=== PATIENT | female | born 1970 | race Hispanic/Latino ===

== ENCOUNTER 2020-08-03 23:05 | Inpatient (IN) | payer OTHER ==
[~2020-08-03] VITALS: Ht 157.5 cm; Wt 74.8 kg
[2020-08-03 23:50] LABS: BASOPHILS % (AUTO) 0.3 % (0.0-5.0); EOSINOPHILS % (AUTO) 1.2 % (0.0-8.0); HEMATOCRIT 34.7 % (36-48); MEAN CORPUSCULAR HEMOGLOBIN 28.7 pg (27.0-33.0); MEAN CORPUSCULAR HGB CONC 33.4 g/dL (32.0-36.0); MEAN CORPUSCULAR VOLUME 85.9 fL (79-99); MONOCYTES % (AUTO) 7.7 % (3.0-13.0); NEUTROPHILS % (AUTO) 69.3 % (40.0-77.0); PLATELET COUNT (AUTO) 244 K/uL (130-400); RED BLOOD CELL COUNT(AUTO) 4.04 MIL/uL (4.00-5.50); RED CELL DISTRIBUTION WIDTH 14.8 % (11.0-15.5); WHITE BLOOD COUNT (AUTO) 14.1 K/uL (4.8-10.8)
[2020-08-04] MEDS ORDERED: ONDANSETRON 4MG INJ ONE (00:09)
[2020-08-04] MEDS ORDERED: MORPHINE 4 MG SYG ONE (00:09)
[2020-08-04 00:12] LABS: INR 1.09 (0.85-1.15); PROTHROMBIN TIME 11.8 SEC (9.6-11.6)
[2020-08-04 00:13] LABS: PARTIAL THROMBOPLASTIN TIME 29.1 SEC (26.3-35.5)
[2020-08-04 00:14] LABS: ALANINE AMINOTRANSFERASE 16 U/L (12-78); ALBUMIN 3.2 g/dL (3.5-5.0); AMYLASE 27 U/L (25-115); ASPARTATE AMINOTRANSFERASE 8 U/L (10-37); BILIRUBIN,TOTAL 0.6 mg/dL (0.2-1.0); CARBON DIOXIDE 29 mmol/L (21-32); CHLORIDE 96 mmol/L (101-111); CREATINE KINASE, TOTAL 45 U/L (21-232); CREATININE 0.6 mg/dL (0.5-1.5); GLOMERULAR FILTR. RATE CALC 112 mL/min (>60); GLUCOSE,RANDOM 153 mg/dL (70-105); LIPASE 71 U/L (114-286); MYOGLOBIN 23 ng/mL (10-92); SODIUM SERUM 135 mmol/L (136-145); TOTAL PROTEIN, SERUM 7.6 g/dL (6.0-8.3); TROPONIN I < 0.04 ng/mL (0.00-0.06); UREA NITROGEN, BLOOD 6 mg/dL (7-18)
[2020-08-04] MEDS ORDERED: IOHEXOL 350 MG/ML 100ML INFUS..BTL IV ONE (00:36)
[2020-08-04] MEDS ORDERED: ZOSYN 3.375GM+NS 50ML 50 ML IV ONE (02:57)
[2020-08-04] MEDS: CEFAZOLIN SODIUM 1 GM VIAL IVP SCH ×2 (08:30→16:30)
[2020-08-04] MEDS ORDERED: VANCOMYCIN PROTOCOL PER PHARMACY IV SCH (08:30)
[2020-08-04] MEDS ORDERED: GUAIFENESIN-DM 200/20 MG 10 ML PO PRN (08:45)
[2020-08-04] MEDS: 0.9%NACL 1000ML 1,000 ML IV SCH ×2 (08:45→18:45)
[2020-08-04] MEDS ORDERED: ONDANSETRON 4MG INJ IV PRN (08:45)
[2020-08-04] MEDS: ENOXAPARIN SODIUM 30 MG/0.3 ML SQ SCH (09:00)
[2020-08-04] MEDS: FAMOTIDINE 20MG VIAL IV SCH ×2 (09:00→20:34)
[2020-08-04] MEDS ORDERED: CEFAZOLIN SODIUM 1 GM VIAL ONE (12:40)
[2020-08-04] MEDS ORDERED: 0.9%NACL 100ML 100 ML IV ONE (12:41)
[2020-08-04] MEDS ORDERED: MORPHINE 2 MG SYG ONE (12:58)
[2020-08-04] MEDS ORDERED: VANCOMYCIN 1G 1.5 GM in 0.9% NACL 250ML 250 ML IV ONE (13:30)
[2020-08-04] MEDS ORDERED: COMPOUND IV REFRIGERATED 1 EACH IVSOLN MISC PRN (13:30)
[2020-08-04 17:10] VITALS: BP 101/46
[2020-08-04] MEDS ORDERED: METF-910 PO (17:55)
[2020-08-04 19:44] VITALS: BP 93/48
[2020-08-04] MEDS: VANCOMYCIN 750MG + NS 250 ML IV SCH ×2 (20:34)
[2020-08-04] MEDS: POTASSIUM CHLORIDE 20MEQ/100ML 100 ML IV PRN (20:35)
[2020-08-04] MEDS: KETOROLAC 15MG/ML VIAL (15MG/ML) IV PRN (21:01)
[2020-08-04 23:34] VITALS: BP 102/56
[2020-08-05] MEDS: CEFAZOLIN SODIUM 1 GM VIAL IVP SCH ×3 (00:17→16:31)
[2020-08-05] MEDS: POTASSIUM CHLORIDE 20MEQ/100ML 100 ML IV PRN ×2 (00:18→16:31)
[2020-08-05 03:26] VITALS: BP 103/63
[2020-08-05] MEDS: 0.9%NACL 1000ML 1,000 ML IV SCH ×2 (04:45→16:30)
[2020-08-05] MEDS: KETOROLAC 15MG/ML VIAL (15MG/ML) IV PRN ×3 (05:34→16:31)
[2020-08-05] MEDS: VANCOMYCIN 750MG + NS 250 ML IV SCH ×2 (05:38)
[2020-08-05 07:10] LABS: BASOPHILS % (AUTO) 0.3 % (0.0-5.0); LYMPHOCYTES % (AUTO) 13.9 % (21.0-51.0); MEAN CORPUSCULAR HEMOGLOBIN 28.4 pg (27.0-33.0); MEAN CORPUSCULAR HGB CONC 32.5 g/dL (32.0-36.0); MEAN CORPUSCULAR VOLUME 87.4 fL (79-99); MONOCYTES % (AUTO) 7.3 % (3.0-13.0); NEUTROPHILS % (AUTO) 76.9 % (40.0-77.0); PLATELET COUNT (AUTO) 209 K/uL (130-400); RED BLOOD CELL COUNT(AUTO) 3.66 MIL/uL (4.00-5.50); RED CELL DISTRIBUTION WIDTH 14.7 % (11.0-15.5); WHITE BLOOD COUNT (AUTO) 11.7 K/uL (4.8-10.8)
[2020-08-05 07:31] LABS: ALBUMIN 2.5 g/dL (3.5-5.0); BILIRUBIN,TOTAL 0.8 mg/dL (0.2-1.0); CREATININE 0.7 mg/dL (0.5-1.5); MAGNESIUM 1.7 mg/dL (1.80-2.40); POTASSIUM 3.4 mmol/L (3.5-5.1); TOTAL PROTEIN, SERUM 6.4 g/dL (6.0-8.3)
[2020-08-05 08:00] VITALS: BP 97/61
[2020-08-05] MEDS: ENOXAPARIN SODIUM 30 MG/0.3 ML SQ SCH (09:00)
[2020-08-05] MEDS: FAMOTIDINE 20MG VIAL IV SCH ×2 (09:05→20:37)
[2020-08-05 12:00] VITALS: BP 111/54
[2020-08-05 16:00] VITALS: BP 145/70
[2020-08-05] MEDS ORDERED: LIDOCAINE HCL-MPF 1% 2ML VIAL ONE (16:27)
[2020-08-05] MEDS ORDERED: VANCOMYCIN 1G 2 GM in 0.9% NACL 500ML IV.SOLN 500 ML IV SCH (17:00)
[2020-08-05] MEDS ORDERED: VANCOMYCIN IV SCH ×2 (17:00)
[2020-08-05] MEDS ORDERED: NACL 0.9% IV SCH ×2 (17:00)
[2020-08-05 19:26] VITALS: BP 117/65
[2020-08-05] MEDS: INSULIN HUMULIN R 100 UNIT/ML 3ML SQ SCH (20:42)
[2020-08-05 23:22] VITALS: BP 108/57
[2020-08-06] VITALS: BP 124/69
[2020-08-06] MEDS: CEFAZOLIN SODIUM 1 GM VIAL IVP SCH ×4 (01:05→23:16)
[2020-08-06] MEDS: KETOROLAC 15MG/ML VIAL (15MG/ML) IV PRN ×3 (01:21→14:55)
[2020-08-06 04:00] VITALS: BP 112/65
[2020-08-06] MEDS: ACETAMINOPHEN 325 MG TAB PO PRN ×2 (05:09→16:44)
[2020-08-06] MEDS: VANCOMYCIN 1G/250ML KIT 250 ML IV SCH ×3 (05:11→23:12)
[2020-08-06 05:50] LABS: BASOPHILS % (AUTO) 0.3 % (0.0-5.0); EOSINOPHILS % (AUTO) 1.3 % (0.0-8.0); HEMATOCRIT 31.8 % (36-48); MEAN CORPUSCULAR HEMOGLOBIN 27.5 pg (27.0-33.0); MEAN CORPUSCULAR HGB CONC 32.1 g/dL (32.0-36.0); MEAN CORPUSCULAR VOLUME 85.7 fL (79-99); MONOCYTES % (AUTO) 8.2 % (3.0-13.0); NEUTROPHILS % (AUTO) 73.6 % (40.0-77.0); PLATELET COUNT (AUTO) 216 K/uL (130-400); RED BLOOD CELL COUNT(AUTO) 3.71 MIL/uL (4.00-5.50); RED CELL DISTRIBUTION WIDTH 14.4 % (11.0-15.5); WHITE BLOOD COUNT (AUTO) 11.1 K/uL (4.8-10.8)
[2020-08-06 06:21] LABS: ALBUMIN 2.5 g/dL (3.5-5.0); BILIRUBIN,TOTAL 0.6 mg/dL (0.2-1.0); CREATININE 0.6 mg/dL (0.5-1.5); POTASSIUM 3.5 mmol/L (3.5-5.1); TOTAL PROTEIN, SERUM 6.4 g/dL (6.0-8.3)
[2020-08-06] MEDS: INSULIN HUMULIN R 100 UNIT/ML 3ML SQ SCH ×4 (06:54→20:56)
[2020-08-06 08:00] VITALS: BP 90/51
[2020-08-06] MEDS: ENOXAPARIN SODIUM 30 MG/0.3 ML SQ SCH (09:03)
[2020-08-06] MEDS: FAMOTIDINE 20MG VIAL IV SCH ×2 (09:03→20:56)
[2020-08-06 12:00] VITALS: BP 108/58
[2020-08-06] MEDS: HYDROMORPHONE 0.5 MG SYG (0.5MG/0.5ML) IVP PRN (12:32)
[2020-08-06] MEDS: LACTULOSE 20 GM/30 ML UDCUP PO PRN ×2 (13:36→19:26)
[2020-08-06 16:00] VITALS: BP 111/62
[2020-08-06] MEDS: POTASSIUM CHLORIDE 20MEQ/100ML 100 ML IV PRN (18:10)
[2020-08-06] MEDS: 0.9%NACL 1000ML 1,000 ML IV SCH (19:22)
[2020-08-06 20:00] VITALS: BP 102/55
[2020-08-07] VITALS (12 sets, daily range): BP systolic 111–140; BP diastolic 59–68
[2020-08-07] MEDS: KETOROLAC 15MG/ML VIAL (15MG/ML) IV PRN ×2 (00:04→05:28)
[2020-08-07] MEDS: VANCOMYCIN 1G/250ML KIT 250 ML IV SCH ×3 (05:25→21:57)
[2020-08-07] MEDS: 0.9%NACL 1000ML 1,000 ML IV SCH ×2 (05:26→15:00)
[2020-08-07 05:52] LABS: BASOPHILS % (AUTO) 0.2 % (0.0-5.0); EOSINOPHILS % (AUTO) 1.5 % (0.0-8.0); HEMATOCRIT 30.7 % (36-48); LYMPHOCYTES % (AUTO) 16.4 % (21.0-51.0); MEAN CORPUSCULAR HGB CONC 32.9 g/dL (32.0-36.0); MONOCYTES % (AUTO) 7.5 % (3.0-13.0); NEUTROPHILS % (AUTO) 73.8 % (40.0-77.0); PLATELET COUNT (AUTO) 212 K/uL (130-400); RED BLOOD CELL COUNT(AUTO) 3.61 MIL/uL (4.00-5.50); RED CELL DISTRIBUTION WIDTH 14.5 % (11.0-15.5)
[2020-08-07 06:01] LABS: ALBUMIN 2.5 g/dL (3.5-5.0); BILIRUBIN,TOTAL 0.6 mg/dL (0.2-1.0); CREATININE 0.7 mg/dL (0.5-1.5); TOTAL PROTEIN, SERUM 6.9 g/dL (6.0-8.3)
[2020-08-07] MEDS: POTASSIUM CHLORIDE 20MEQ/100ML 100 ML IV PRN ×2 (06:15→08:53)
[2020-08-07] MEDS: INSULIN HUMULIN R 100 UNIT/ML 3ML SQ SCH ×4 (06:18→22:05)
[2020-08-07] MEDS: FAMOTIDINE 20MG VIAL IV SCH ×2 (08:10→21:56)
[2020-08-07] MEDS: CEFAZOLIN SODIUM 1 GM VIAL IVP SCH ×2 (08:10→17:24)
[2020-08-07] MEDS: HYDROMORPHONE 0.5 MG SYG (0.5MG/0.5ML) IVP PRN (08:53)
[2020-08-07] MEDS: ENOXAPARIN SODIUM 30 MG/0.3 ML SQ SCH (15:48)
[2020-08-08] MEDS: 0.9%NACL 1000ML 1,000 ML IV SCH ×3 (01:00→21:00)
[2020-08-08] MEDS: CEFAZOLIN SODIUM 1 GM VIAL IVP SCH ×2 (01:39→09:09)
[2020-08-08 04:00] VITALS: BP 118/59
[2020-08-08 05:17] LABS: BASOPHILS % (AUTO) 0.4 % (0.0-5.0); EOSINOPHILS % (AUTO) 1.2 % (0.0-8.0); HEMATOCRIT 28.2 % (36-48); LYMPHOCYTES % (AUTO) 20.3 % (21.0-51.0); MEAN CORPUSCULAR HEMOGLOBIN 28.7 pg (27.0-33.0); MEAN CORPUSCULAR VOLUME 84.4 fL (79-99); MONOCYTES % (AUTO) 7.5 % (3.0-13.0); NEUTROPHILS % (AUTO) 70.1 % (40.0-77.0); PLATELET COUNT (AUTO) 188 K/uL (130-400); RED BLOOD CELL COUNT(AUTO) 3.34 MIL/uL (4.00-5.50); RED CELL DISTRIBUTION WIDTH 14.6 % (11.0-15.5); WHITE BLOOD COUNT (AUTO) 10.5 K/uL (4.8-10.8)
[2020-08-08 05:32] LABS: CREATININE 0.7 mg/dL (0.5-1.5); POTASSIUM 3.2 mmol/L (3.5-5.1)
[2020-08-08] MEDS: VANCOMYCIN 1G/250ML KIT 250 ML IV SCH ×3 (06:00→22:41)
[2020-08-08] MEDS: INSULIN HUMULIN R 100 UNIT/ML 3ML SQ SCH ×4 (06:30→22:40)
[2020-08-08 08:11] VITALS: BP 107/57
[2020-08-08] MEDS: ENOXAPARIN SODIUM 30 MG/0.3 ML SQ SCH (09:09)
[2020-08-08] MEDS: FAMOTIDINE 20MG VIAL IV SCH ×2 (09:10→22:39)
[2020-08-08] MEDS: ACETAMINOPHEN 325 MG TAB PO PRN (10:46)
[2020-08-08] MEDS: POTASSIUM CHLORIDE 20MEQ/100ML 100 ML IV PRN (10:48)
[2020-08-08] MEDS ORDERED: LIDOCAINE HCL-MPF 1% 2ML VIAL ONE (11:00)
[2020-08-08 11:41] VITALS: BP 112/66
[2020-08-08] MEDS: HYDROMORPHONE 0.5 MG SYG (0.5MG/0.5ML) IVP PRN ×2 (11:43→22:42)
[2020-08-08] MEDS: ZOSYN 3.375GM+NS 50ML 50 ML IV SCH ×2 (13:00→22:39)
[2020-08-08 16:00] VITALS: BP 103/63
[2020-08-08 20:05] VITALS: BP 114/58
[2020-08-08 23:31] VITALS: BP 118/56
[2020-08-09 03:58] VITALS: BP 108/60
[2020-08-09] MEDS: ZOSYN 3.375GM+NS 50ML 50 ML IV SCH ×3 (04:19→20:36)
[2020-08-09] MEDS: VANCOMYCIN 1G/250ML KIT 250 ML IV SCH ×3 (05:27→21:47)
[2020-08-09 05:44] LABS: BASOPHILS % (AUTO) 0.3 % (0.0-5.0); EOSINOPHILS % (AUTO) 1.8 % (0.0-8.0); HEMATOCRIT 30.4 % (36-48); LYMPHOCYTES % (AUTO) 18.1 % (21.0-51.0); MEAN CORPUSCULAR HGB CONC 32.2 g/dL (32.0-36.0); MEAN CORPUSCULAR VOLUME 86.9 fL (79-99); MONOCYTES % (AUTO) 7.6 % (3.0-13.0); NEUTROPHILS % (AUTO) 71.7 % (40.0-77.0); PLATELET COUNT (AUTO) 200 K/uL (130-400); RED CELL DISTRIBUTION WIDTH 14.7 % (11.0-15.5); WHITE BLOOD COUNT (AUTO) 10.1 K/uL (4.8-10.8)
[2020-08-09 06:07] LABS: CREATININE 0.7 mg/dL (0.5-1.5); POTASSIUM 3.7 mmol/L (3.5-5.1)
[2020-08-09] MEDS: 0.9%NACL 1000ML 1,000 ML IV SCH ×2 (07:00→16:39)
[2020-08-09] MEDS: INSULIN HUMULIN R 100 UNIT/ML 3ML SQ SCH ×4 (07:21→21:48)
[2020-08-09 08:00] VITALS: BP 122/57
[2020-08-09] MEDS: FAMOTIDINE 20MG VIAL IV SCH ×2 (08:31→20:36)
[2020-08-09] MEDS: ENOXAPARIN SODIUM 30 MG/0.3 ML SQ SCH (08:32)
[2020-08-09] MEDS: HYDROMORPHONE 0.5 MG SYG (0.5MG/0.5ML) IVP PRN ×2 (08:32→18:25)
[2020-08-09 12:04] VITALS: BP 96/54
[2020-08-09 16:00] VITALS: BP 123/67
[2020-08-09 20:00] VITALS: BP 105/53
[2020-08-10] VITALS: BP 115/53
[2020-08-10] MEDS: HYDROMORPHONE 0.5 MG SYG (0.5MG/0.5ML) IVP PRN ×3 (00:06→14:18)
[2020-08-10 04:00] VITALS: BP 115/59
[2020-08-10] MEDS: ZOSYN 3.375GM+NS 50ML 50 ML IV SCH ×3 (04:49→19:44)
[2020-08-10 05:12] LABS: BASOPHILS % (AUTO) 0.3 % (0.0-5.0); EOSINOPHILS % (AUTO) 1.6 % (0.0-8.0); HEMATOCRIT 30.3 % (36-48); LYMPHOCYTES % (AUTO) 22.2 % (21.0-51.0); MEAN CORPUSCULAR HEMOGLOBIN 28.3 pg (27.0-33.0); MEAN CORPUSCULAR HGB CONC 33.3 g/dL (32.0-36.0); MEAN CORPUSCULAR VOLUME 84.9 fL (79-99); MONOCYTES % (AUTO) 7.7 % (3.0-13.0); NEUTROPHILS % (AUTO) 67.8 % (40.0-77.0); PLATELET COUNT (AUTO) 232 K/uL (130-400); RED BLOOD CELL COUNT(AUTO) 3.57 MIL/uL (4.00-5.50); RED CELL DISTRIBUTION WIDTH 14.6 % (11.0-15.5); WHITE BLOOD COUNT (AUTO) 10.7 K/uL (4.8-10.8)
[2020-08-10 05:19] LABS: CREATININE 0.8 mg/dL (0.5-1.5); POTASSIUM 3.4 mmol/L (3.5-5.1)
[2020-08-10] MEDS: VANCOMYCIN 1G/250ML KIT 250 ML IV SCH ×3 (05:32→21:18)
[2020-08-10] MEDS: INSULIN HUMULIN R 100 UNIT/ML 3ML SQ SCH ×4 (06:09→20:59)
[2020-08-10] MEDS ORDERED: KCL 20 MEQ ERTAB PO SCH (07:45)
[2020-08-10] MEDS ORDERED: LACTULOSE 20 GM/30 ML UDCUP PO SCH (08:00)
[2020-08-10] MEDS ORDERED: GLIPIZIDE XL 2.5MG TAB PO SCH (08:00)
[2020-08-10 08:07] VITALS: BP 130/62
[2020-08-10] MEDS: METFORMIN HCL 500 MG TABLET PO SCH ×2 (08:38→16:59)
[2020-08-10] MEDS: FAMOTIDINE 20MG VIAL IV SCH ×2 (08:39→19:44)
[2020-08-10] MEDS: ENOXAPARIN SODIUM 30 MG/0.3 ML SQ SCH (08:39)
[2020-08-10 12:00] VITALS: BP 114/60
[2020-08-10 16:00] VITALS: BP 108/53
[2020-08-10] MEDS ORDERED: HYDROMORPHONE 1 MG INJ IVP PRN (18:45)
[2020-08-10 20:00] VITALS: BP 113/61
[2020-08-10] MEDS: INSULIN GLARGINE 100 UNITS/ML 10 ML VIAL SQ SCH (21:02)
[2020-08-11] VITALS (26 sets, daily range): BP systolic 96–156; BP diastolic 46–85
[2020-08-11] MEDS: ACETAMINOPHEN 325 MG TAB PO PRN (03:57)
[2020-08-11] MEDS: HYDROMORPHONE 0.5 MG SYG (0.5MG/0.5ML) IVP PRN (03:57)
[2020-08-11 04:42] LABS: APPEARANCE,URINE Cloudy (CLEAR); BILIRUBIN,URINE Negative (NEGATIVE); COLOR,URINE Yellow (YELLOW); GLUCOSE, URINE (UA) Negative (NEGATIVE); KETONES,URINE Negative (NEGATIVE); LEUKOCYTE ESTERASE ,URINE Trace (NEGATIVE); NITRATE,URINE Negative (NEGATIVE); OCCULT BLOOD,URINE Negative (NEGATIVE); PROTEIN,URINE Negative (NEGATIVE)
[2020-08-11] MEDS: ZOSYN 3.375GM+NS 50ML 50 ML IV SCH ×4 (04:52→21:10)
[2020-08-11 04:53] LABS: BACTERIA,URINE Few /HPF (None Seen); RBC,URINE 0-1 /HPF (0-1); WBC,URINE 0-1 /HPF (0-1)
[2020-08-11 04:54] LABS: YEAST,URINE BUDDING Moderate /HPF (None Seen)
[2020-08-11 05:14] LABS: BASOPHILS % (AUTO) 0.3 % (0.0-5.0); EOSINOPHILS % (AUTO) 1.7 % (0.0-8.0); HEMATOCRIT 30.4 % (36-48); LYMPHOCYTES % (AUTO) 13.4 % (21.0-51.0); MEAN CORPUSCULAR HEMOGLOBIN 27.9 pg (27.0-33.0); MEAN CORPUSCULAR HGB CONC 32.9 g/dL (32.0-36.0); MEAN CORPUSCULAR VOLUME 84.7 fL (79-99); MONOCYTES % (AUTO) 7.9 % (3.0-13.0); NEUTROPHILS % (AUTO) 76.4 % (40.0-77.0); PLATELET COUNT (AUTO) 266 K/uL (130-400); RED BLOOD CELL COUNT(AUTO) 3.59 MIL/uL (4.00-5.50); RED CELL DISTRIBUTION WIDTH 14.7 % (11.0-15.5); WHITE BLOOD COUNT (AUTO) 10.4 K/uL (4.8-10.8)
[2020-08-11 05:16] LABS: INR 1.06 (0.85-1.15); PROTHROMBIN TIME 11.5 SEC (9.6-11.6)
[2020-08-11 05:17] LABS: PARTIAL THROMBOPLASTIN TIME 27.9 SEC (26.3-35.5)
[2020-08-11 05:34] LABS: CREATININE 0.9 mg/dL (0.5-1.5); CRP QUANTITATIVE 169.2 mg/L (0.00-9.0); POTASSIUM 3.7 mmol/L (3.5-5.1)
[2020-08-11] MEDS: VANCOMYCIN 1G/250ML KIT 250 ML IV SCH ×3 (05:45→21:13)
[2020-08-11] MEDS: INSULIN HUMULIN R 100 UNIT/ML 3ML SQ SCH ×6 (06:05→21:08)
[2020-08-11 06:12] LABS: ERYTHROCYTE SEDIMENTATION RATE 118 MM/HR (0-30)
[2020-08-11] MEDS ORDERED: INSULIN HUMULIN R 100 UNIT/ML 3ML SQ SCH (07:30)
[2020-08-11] MEDS ORDERED: LIDOCAINE 1%-EPI 1:100,000 20 ML VIAL IJ ONE (07:52)
[2020-08-11] MEDS: ENOXAPARIN SODIUM 30 MG/0.3 ML SQ SCH (08:12)
[2020-08-11] MEDS: FAMOTIDINE 20MG VIAL IV SCH ×2 (08:12→21:10)
[2020-08-11] MEDS ORDERED: 0.9%NACL 1000ML 1,000 ML IV ONE (12:12)
[2020-08-11] MEDS ORDERED: SUCCINYLCHOLINE CHLORIDE 20 MG/ML 10 ML VIAL ONE (12:26)
[2020-08-11] MEDS ORDERED: LIDOCAINE PF 100MG/5ML (2%) SYRINGE 5ML ONE (12:26)
[2020-08-11] MEDS ORDERED: PROPOFOL 10 MG/ML 20ML VIAL IV ONE (12:27)
[2020-08-11] MEDS ORDERED: MIDAZOLAM HCL 1 MG/ML 2ML VIAL ONE (12:27)
[2020-08-11] MEDS ORDERED: METRONIDAZOLE 500 MG TABLET PO SCH (12:30)
[2020-08-11] MEDS ORDERED: ROCURONIUM 10MG/1ML SYR 10 MG/ML ML ONE (12:36)
[2020-08-11] MEDS ORDERED: FENTANYL CITRATE PF 50 MCG/1 ML 2ML VIAL ONE (12:37)
[2020-08-11] MEDS ORDERED: ONDANSETRON 4MG INJ ONE (12:43)
[2020-08-11] MEDS ORDERED: GLYCOPYRROLATE 1 MG/5 ML SYRINGE ONE (12:43)
[2020-08-11] MEDS ORDERED: NEOSTIGMINE 5MG/5ML SYR IV ONE (12:43)
[2020-08-11] MEDS ORDERED: ONDANSETRON 4MG INJ IVP PRN (13:30)
[2020-08-11] MEDS ORDERED: MEPERIDINE-PF 25 MG/ML SYG ONE (13:40)
[2020-08-11] MEDS: METRONIDAZOLE 500MG/100ML BAG 100 ML IVPB SCH ×2 (15:19→21:11)
[2020-08-11] MEDS: INSULIN GLARGINE 100 UNITS/ML 10 ML VIAL SQ SCH (21:06)
[2020-08-12] MEDS: MORPHINE 4 MG SYG IV PRN (02:07)
[2020-08-12] MEDS: ACETAMINOPHEN 325 MG TAB PO PRN (02:47)
[2020-08-12 04:00] VITALS: BP 92/48
[2020-08-12 05:10] LABS: BASOPHILS % (AUTO) 0.3 % (0.0-5.0); EOSINOPHILS % (AUTO) 1.7 % (0.0-8.0); HEMATOCRIT 27.2 % (36-48); LYMPHOCYTES % (AUTO) 23.9 % (21.0-51.0); MEAN CORPUSCULAR HEMOGLOBIN 28.4 pg (27.0-33.0); MEAN CORPUSCULAR HGB CONC 32.7 g/dL (32.0-36.0); MEAN CORPUSCULAR VOLUME 86.9 fL (79-99); MONOCYTES % (AUTO) 6.2 % (3.0-13.0); NEUTROPHILS % (AUTO) 67.3 % (40.0-77.0); PLATELET COUNT (AUTO) 273 K/uL (130-400); RED BLOOD CELL COUNT(AUTO) 3.13 MIL/uL (4.00-5.50); RED CELL DISTRIBUTION WIDTH 15.3 % (11.0-15.5); WHITE BLOOD COUNT (AUTO) 8.7 K/uL (4.8-10.8)
[2020-08-12 05:16] LABS: CREATININE 1.1 mg/dL (0.5-1.5); POTASSIUM 3.6 mmol/L (3.5-5.1)
[2020-08-12] MEDS: VANCOMYCIN 1G/250ML KIT 250 ML IV SCH ×2 (05:20→20:04)
[2020-08-12] MEDS: METRONIDAZOLE 500MG/100ML BAG 100 ML IVPB SCH ×3 (05:21→21:03)
[2020-08-12] MEDS: ZOSYN 3.375GM+NS 50ML 50 ML IV SCH ×3 (05:21→20:04)
[2020-08-12] MEDS ORDERED: KCL 20 MEQ ERTAB PO PRN (06:15)
[2020-08-12] MEDS ORDERED: POTASSIUM CHLORIDE 10% ELIXIR 20 MEQ/15 ML UDCUP PO PRN (06:15)
[2020-08-12] MEDS: INSULIN HUMULIN R 100 UNIT/ML 3ML SQ SCH ×7 (06:23→21:04)
[2020-08-12 08:01] VITALS: BP 96/69
[2020-08-12] MEDS ORDERED: COMPOUND IV MISC 1 EACH IVSOLN MISC PRN (08:15)
[2020-08-12] MEDS: IRON SUCROSE COMPLEX 300 MG in 0.9%NACL 50ML 50 ML IV SCH (09:04)
[2020-08-12] MEDS: FLUCONAZOLE 400 MG/NS 200 ML 200 ML IV SCH (09:05)
[2020-08-12] MEDS: ENOXAPARIN SODIUM 30 MG/0.3 ML SQ SCH (09:05)
[2020-08-12] MEDS: FAMOTIDINE 20MG VIAL IV SCH ×2 (09:05→20:04)
[2020-08-12 11:08] VITALS: BP 97/42
[2020-08-12 16:24] VITALS: BP 138/73
[2020-08-12 19:49] VITALS: BP 119/64
[2020-08-12] MEDS: INSULIN GLARGINE 100 UNITS/ML 10 ML VIAL SQ SCH (21:03)
[2020-08-13] VITALS: BP 141/67
[2020-08-13] MEDS: MORPHINE 4 MG SYG IV PRN ×2 (00:10→20:13)
[2020-08-13 04:00] VITALS: BP 127/64
[2020-08-13] MEDS: ZOSYN 3.375GM+NS 50ML 50 ML IV SCH ×3 (05:11→20:03)
[2020-08-13] MEDS: METRONIDAZOLE 500MG/100ML BAG 100 ML IVPB SCH ×3 (05:11→22:13)
[2020-08-13] MEDS: INSULIN HUMULIN R 100 UNIT/ML 3ML SQ SCH ×7 (06:30→21:00)
[2020-08-13 07:54] VITALS: BP 133/62
[2020-08-13] MEDS: IRON SUCROSE COMPLEX 300 MG in 0.9%NACL 50ML 50 ML IV SCH (08:37)
[2020-08-13] MEDS: VANCOMYCIN 1G/250ML KIT 250 ML IV SCH ×2 (08:38→20:04)
[2020-08-13] MEDS: FAMOTIDINE 20MG VIAL IV SCH ×2 (08:38→20:03)
[2020-08-13] MEDS: ENOXAPARIN SODIUM 30 MG/0.3 ML SQ SCH (08:39)
[2020-08-13] MEDS: FLUCONAZOLE 400 MG/NS 200 ML 200 ML IV SCH (09:00)
[2020-08-13 11:09] VITALS: BP 149/69
[2020-08-13 15:48] VITALS: BP 129/62
[2020-08-13 19:39] VITALS: BP 141/60
[2020-08-13] MEDS: INSULIN GLARGINE 100 UNITS/ML 10 ML VIAL SQ SCH (20:10)
[2020-08-14 00:07] VITALS: BP 130/61
[2020-08-14 03:43] VITALS: BP 140/65
[2020-08-14] MEDS: ZOSYN 3.375GM+NS 50ML 50 ML IV SCH ×3 (04:25→21:27)
[2020-08-14] MEDS: METRONIDAZOLE 500MG/100ML BAG 100 ML IVPB SCH ×3 (05:25→22:00)
[2020-08-14] MEDS: INSULIN HUMULIN R 100 UNIT/ML 3ML SQ SCH ×7 (05:54→21:00)
[2020-08-14 06:34] LABS: BASOPHILS % (AUTO) 0.4 % (0.0-5.0); EOSINOPHILS % (AUTO) 2.4 % (0.0-8.0); HEMATOCRIT 30.5 % (36-48); LYMPHOCYTES % (AUTO) 21.1 % (21.0-51.0); MEAN CORPUSCULAR HEMOGLOBIN 27.4 pg (27.0-33.0); MEAN CORPUSCULAR HGB CONC 31.8 g/dL (32.0-36.0); MEAN CORPUSCULAR VOLUME 86.2 fL (79-99); MONOCYTES % (AUTO) 7.8 % (3.0-13.0); NEUTROPHILS % (AUTO) 67.8 % (40.0-77.0); PLATELET COUNT (AUTO) 323 K/uL (130-400); RED BLOOD CELL COUNT(AUTO) 3.54 MIL/uL (4.00-5.50); RED CELL DISTRIBUTION WIDTH 15.1 % (11.0-15.5); WHITE BLOOD COUNT (AUTO) 8.4 K/uL (4.8-10.8)
[2020-08-14 08:00] VITALS: BP 136/68
[2020-08-14] MEDS: FAMOTIDINE 20MG VIAL IV SCH ×2 (08:21→21:36)
[2020-08-14] MEDS: VANCOMYCIN 1G/250ML KIT 250 ML IV SCH ×2 (08:21→21:36)
[2020-08-14] MEDS: POTASSIUM CHLORIDE 20MEQ/100ML 100 ML IV PRN (08:22)
[2020-08-14] MEDS: ENOXAPARIN SODIUM 30 MG/0.3 ML SQ SCH (08:22)
[2020-08-14] MEDS: IRON SUCROSE COMPLEX 300 MG in 0.9%NACL 50ML 50 ML IV SCH (08:24)
[2020-08-14] MEDS ORDERED: KCL 20 MEQ ERTAB PO SCH (09:00)
[2020-08-14 11:57] LABS: CREATININE 1.3 mg/dL (0.5-1.5); POTASSIUM 4.1 mmol/L (3.5-5.1)
[2020-08-14 12:03] VITALS: BP 121/69
[2020-08-14 12:44] LABS: INR 1.16 (0.85-1.15); PROTHROMBIN TIME 12.5 SEC (9.6-11.6)
[2020-08-14 16:00] VITALS: BP 144/60
[2020-08-14] MEDS: INSULIN GLARGINE 100 UNITS/ML 10 ML VIAL SQ SCH (21:00)
== END 2020-08-14 23:59 | DRG 581 ==
LOC: EDH 23:05 → EDHIP 08-04 08:31 → 3AH 08-04 16:56
PROVIDERS: ADMIT Internal Medicine; ATTEND Internal Medicine
PROC: 0W9F3ZZ Drainage of Abdominal Wall, Percutaneous Approach (ICD-10-PCS; 2020-08-07)
PROC: 0W9F0ZZ Drainage of Abdominal Wall, Open Approach (ICD-10-PCS; principal; 2020-08-11 13:06)
PROC: 02HV33Z Insertion of Infusion Device into Superior Vena Cava, Percutaneous Approach (ICD-10-PCS; 2020-08-14)
DX: L02.211 Cutaneous abscess of abdominal wall (principal); L03.311 Cellulitis of abdominal wall; E87.6 Hypokalemia; R53.81 Other malaise; I10 Essential (primary) hypertension; D72.829 Elevated white blood cell count, unspecified; E66.9 Obesity, unspecified; E11.9 Type 2 diabetes mellitus without complications; B96.89 Other specified bacterial agents as the cause of diseases classified elsewhere; M47.815 Spondylosis without myelopathy or radiculopathy, thoracolumbar region; Z20.822 Contact with and (suspected) exposure to COVID-19; Z68.30 Body mass index [BMI] 30.0-30.9, adult; Z90.49 Acquired absence of other specified parts of digestive tract; Z90.710 Acquired absence of both cervix and uterus
CPT/HCPCS: 10005; 36415; 71045; 71046; 74176; 74177; 76942; 80048; 80053; 80202; 81001; 82150; 82550; 82948; 83036; 83605; 83690; 83735; 83874; 84145; 84484; 85025; 85610; 85651; 85730; 86140; 86900; 86901; 87040; 87070; 87071; 87076; 87205; 87426; 87804; 93005; C1729; C1894; G0378; J0330; J0690; J1170; J1450; J1650; J1756; J1815; J1885; J2001; J2175; J2250; J2270; J2405; J2543; J2704; J2710; J3010; J3370; J3480; J3490; J7030; J7040; J7050; Q9967; U0003

== ENCOUNTER → 2020-10-13 | Outpatient (CLI) | payer OTHER ==
[~2020-10-13] MED LIST: METF-910 PO
== END | disposition home or self-care (01) ==
LOC: RAH 08:13
PROVIDERS: ATTEND Student in an Organized Health Care Education/Training Program
DX: R10.11 Right upper quadrant pain (principal); K76.0 Fatty (change of) liver, not elsewhere classified; R16.0 Hepatomegaly, not elsewhere classified
CPT/HCPCS: 76705

== ENCOUNTER 2021-02-12 06:53 | Day surgery (SDC) | payer OTHER ==
[2021-02-12] VITALS (8 sets, daily range): BP systolic 104–116; BP diastolic 60–72
[~2021-02-12] VITALS: Ht 157.5 cm; Wt 79.4 kg
[2021-02-12] MEDS ORDERED: 0.9%NACL 1000ML 1,000 ML IV ONE (08:14)
[2021-02-12 08:37] LABS: BASOPHILS % (AUTO) 0.6 % (0.0-5.0); EOSINOPHILS % (AUTO) 4.2 % (0.0-8.0); HEMATOCRIT 37.8 % (36-48); LYMPHOCYTES % (AUTO) 37.7 % (21.0-51.0); MEAN CORPUSCULAR HGB CONC 33.1 g/dL (32.0-36.0); MEAN CORPUSCULAR VOLUME 90.9 fL (79-99); MONOCYTES % (AUTO) 7.3 % (3.0-13.0); NEUTROPHILS % (AUTO) 49.8 % (40.0-77.0); PLATELET COUNT (AUTO) 171 K/uL (130-400); RED BLOOD CELL COUNT(AUTO) 4.16 MIL/uL (4.00-5.50); RED CELL DISTRIBUTION WIDTH 13.3 % (11.0-15.5); WHITE BLOOD COUNT (AUTO) 7.9 K/uL (4.8-10.8)
[2021-02-12] MEDS ORDERED: MIDAZOLAM HCL 1 MG/ML 2ML VIAL ONE (09:41)
[2021-02-12] MEDS ORDERED: PROPOFOL 10 MG/ML 20ML VIAL IV ONE ×2 (09:41→09:46)
[2021-02-12] MEDS ORDERED: OMEP40CA21 PO (11:11)
== END 2021-02-12 08:00 | disposition home or self-care (01) ==
LOC: DAH 06:53 → ENDO 06:53
PROVIDERS: ATTEND Student in an Organized Health Care Education/Training Program
DX: K59.00 Constipation, unspecified (principal); K29.50 Unspecified chronic gastritis without bleeding; K64.9 Unspecified hemorrhoids; K21.9 Gastro-esophageal reflux disease without esophagitis; E11.9 Type 2 diabetes mellitus without complications; Z83.3 Family history of diabetes mellitus; Z82.49 Family history of ischemic heart disease and other diseases of the circulatory system; Z98.890 Other specified postprocedural states; Z90.710 Acquired absence of both cervix and uterus; Z79.899 Other long term (current) drug therapy
CPT/HCPCS: 36415; 43239; 45378; 82948; 85025; A4215; A4221; A4222; A4223; A4606; A4620; A4663; J2250; J2704 ×2; J7030